=== PATIENT | male | born 1965 | race Caucasian/White ===

== ENCOUNTER 2019-04-22 16:16 | Emergency (ER) | payer SELFPAY ==
[~2019-04-22] VITALS: Ht 170.2 cm; Wt 80.9 kg
[2019-04-22 16:31] VITALS: Ht 170.2 cm; Wt 80.9 kg
[2019-04-22] MEDS ORDERED: IBUPROFEN400 MG PO (16:32)
[2019-04-22] MEDS ORDERED: HYDROCODON-ACE1 EAC7 PO (17:48)
[2019-04-22 18:02] VITALS: BP 140/82
== END 2019-04-22 18:04 | disposition home or self-care (01) ==
LOC: D.ER 16:16
DX: S49.92XA Unspecified injury of left shoulder and upper arm, initial encounter (principal); X50.9XXA Other and unspecified overexertion or strenuous movements or postures, initial encounter; Y93.9 Activity, unspecified; Y92.9 Unspecified place or not applicable